=== PATIENT | female | born 1955 | race Caucasian/White ===

== ENCOUNTER → 2018-04-02 09:17 | Outpatient (CLI) | payer BC, SELFPAY ==
--- NOTE | 2018-04-02 09:20 | US_ITS ---
STUDY: RENAL ULTRASOUND - COMPLETE REASON FOR EXAM: Female, 62 years old. Chronic kidney disease TECHNIQUE: Ultrasound evaluation of the kidneys was performed with real-time and static taveras-scale imaging. COMPARISON: None. FINDINGS: RIGHT KIDNEY: Normal location of the right kidney, which is normal in size. The right kidney measures 9.0 x 3.7 x 4.1 cm. There is a normal cortex of the right kidney. The renal cortex measures 1.0 cm. There is no right renal mass or cyst. There are no right renal calculi. There is an extra-renal pelvis of the right kidney. There is no distention of the renal calyces. DISTAL RIGHT URETER: There is non-visualization of the distal right ureter. There is no demonstrated right ureterovesical junction calculus. There is a visualized right ureteral jet. LEFT KIDNEY: Normal location of the left kidney, which is normal in size. The left kidney measures 9.5 x 4.1 x 4.7 cm. There is a normal cortex of the left kidney. The renal cortex measures 1.6 cm. There are 2 mid pole cyst measuring 1.5 x 1.6 x 1.5 cm and 1.7 x 1.2 x 1.2 cm. There are no left renal calculi. There is a mild left hydronephrosis versus extrarenal pelvis. DISTAL LEFT URETER: There is non-visualization of the distal left ureter. There is no demonstrated left ureterovesical junction calculus. There is a visualized left ureteral jet. BLADDER: The distended urinary bladder has a volume of 420 ml. There is a normal wall thickness of the distended urinary bladder. There is no demonstrated mass within the urinary bladder. There are no demonstrated bladder calculi. US/Kidney and Bladder IMPRESSION: Extrarenal pelvis of the right kidney. Extrarenal pelvis versus mild hydronephrosis of the left kidney. There are 2 mid pole cysts of the left kidney measuring 1.5 x 1.6 x 1.5 cm and 1.7 x 1.2 x 1.2 cm respectively. Electronically Signed: Royce Maguire MD at 18:17 EDT , Service support ,
== END ==
PROVIDERS: Family Provider Registered Nurse; PCP Registered Nurse; Visit Provider Internal Medicine Nephrology
DX: N18.3 Chronic kidney disease, stage 3 (moderate) (principal); N28.1 Cyst of kidney, acquired
CPT/HCPCS: 76770